=== PATIENT | female | born 1955 | race Caucasian/White ===

== ENCOUNTER → 2020-09-06 | Outpatient (CLI) | payer MEDICARE, OTHER ==
[~2020-09-06] MED LIST: AZITHROMYCIN250 MG PO; BENTYL 20MG TAB20 MG PO; CALTRATE 600 +1 EAC1 PO; COLACE 100MG C100 MG PO; CYMBALTA 30 MG30 MG PO; DOXYCYCLINE HY100 MG PO; ENDOCET 5-3251 EACH PO; FENOFIBRATE160 MG PO; FLAGYL500 MG PO; HYDROCODON-ACE1 EAC4 PO; LIPITOR TAB 2020 MG PO; LISINOPRIL10 MG PO; MACROBID 100 M100 MG PO; METFORMIN HCL1000 MG PO; NOVOLOG FL100 UNIT/1 SQ; OMEPRAZOLE40 MG PO; PREDNISONE 20 M20 MG PO; PREDNISONE 50 M50 MG PO; PROMETHAZINE HC25 M1 PO; PROVENTIL HFA6.7 GM INH; TOUJEO SQ; VALIUM2 MG PO; VENTOLIN HFA 66.7 GM INH; VITAMIN D-32000 UNIT PO; Voltaren Gel 1 % TOP; ZOFRAN ODT 4 MG4 MG PO; ZYRTEC10 M3 PO
[2020-09-06 12:30] LABS: HEMOGLOBIN 12.9 gm/dl (12.3-15.3); RED BLOOD COUNT 4.82 M/UL (4.00-5.10); WHITE BLOOD COUNT 8.2 K/UL (4.5-11.0)
[2020-09-06 12:50] LABS: BUN/CREATININE RATIO 13 (0-10)
[2020-09-07 10:14] LABS: CREATININE, URINE 83.2 mg/dL (Not Estab.)
== END ==
LOC: LAB 11:35
PROVIDERS: Internal Medicine
DX: Z51.81 Encounter for therapeutic drug level monitoring (principal); E11.9 Type 2 diabetes mellitus without complications; K21.9 Gastro-esophageal reflux disease without esophagitis; I10 Essential (primary) hypertension; D51.8 Other vitamin B12 deficiency anemias; E55.9 Vitamin D deficiency, unspecified; Z79.899 Other long term (current) drug therapy
CPT/HCPCS: 36415; 80053; 80061; 82043; 82570; 82607; 82746; 83036; 84439; 84443; 85025; 86900; 86901

== ENCOUNTER 2020-12-25 15:38 | Emergency (ER) | payer MEDICARE, OTHER ==
[~2020-12-25 15:38] MED LIST changes: -CALTRATE 600 +1 EAC1 PO; -CYMBALTA 30 MG30 MG PO; -LISINOPRIL10 MG PO; -NOVOLOG FL100 UNIT/1 SQ; -OMEPRAZOLE40 MG PO; -PREDNISONE 20 M20 MG PO; -TOUJEO SQ; -VITAMIN D-32000 UNIT PO
[2020-12-25 16:22] LABS: HEMOGLOBIN 13.2 gm/dl (12.3-15.3); RED BLOOD COUNT 4.86 M/UL (4.00-5.10); WHITE BLOOD COUNT 10.9 K/UL (4.5-11.0)
[2020-12-25 16:56] LABS: BUN/CREATININE RATIO 17 (0-10)
[2020-12-25] MEDS ORDERED: PREDNISONE 20 M20 MG PO (18:25)
== END 2020-12-25 18:42 | disposition home or self-care (01) ==
LOC: ER1 15:38
PROVIDERS: Emergency Medicine
DX: J20.9 Acute bronchitis, unspecified (principal); J45.909 Unspecified asthma, uncomplicated; I10 Essential (primary) hypertension; E11.9 Type 2 diabetes mellitus without complications; Z88.1 Allergy status to other antibiotic agents; Z88.0 Allergy status to penicillin; Z87.891 Personal history of nicotine dependence; Z20.822 Contact with and (suspected) exposure to COVID-19
CPT/HCPCS: 71045; 80053; 82550; 82553; 83874; 83880; 84484; 85025; 85379; 93005; 99285; Q9967; U0002

== ENCOUNTER 2021-02-06 17:32 | Inpatient (IN) | payer MEDICARE, OTHER ==
[~2021-02-06] VITALS: Ht 157.5 cm; Wt 113.4 kg
[~2021-02-06 17:32] MED LIST changes: +PREDNISONE 20 M20 MG PO
[2021-02-06 19:53] LABS: HEMOGLOBIN 12.7 gm/dl (12.3-15.3); RED BLOOD COUNT 4.87 M/UL (4.00-5.10)
[2021-02-06 20:29] LABS: BUN/CREATININE RATIO 11 (0-10)
[2021-02-07 04:31] LABS: HEMOGLOBIN 12.9 gm/dl (12.3-15.3); RED BLOOD COUNT 4.8 M/UL (4.00-5.10)
[2021-02-07 04:32] LABS: WHITE BLOOD COUNT 5.8 K/UL (4.5-11.0)
[2021-02-07 04:54] LABS: BUN/CREATININE RATIO 14 (0-10)
[2021-02-07] MEDS ORDERED: ZOFRAN4 MG PO (12:00)
[2021-02-07] MEDS ORDERED: METOPROLOL TART25 MG PO (12:01)
[2021-02-07] MEDS ORDERED: FOLIC ACID1 MG PO (12:02)
[2021-02-07] MEDS ORDERED: METFORMIN HCL500 M2 PO (12:02)
[2021-02-07] MEDS ORDERED: FLONASE ALLER15.8 ML (12:03)
[2021-02-07] MEDS ORDERED: SINGULAIR10 MG PO (12:03)
[2021-02-07] MEDS ORDERED: PROAIR DIGIHAL90 MCG INH (12:04)
[2021-02-07] MEDS ORDERED: TYLENOL EXTRA500 MG PO (12:07)
[2021-02-07] MEDS ORDERED: VITAMIN E90 M1 PO (12:08)
[2021-02-07] MEDS ORDERED: CALCIUM CARBON600 M1 PO (16:23)
[2021-02-07] MEDS ORDERED: VITAMIN D350 MC3 PO (16:23)
[2021-02-07] MEDS ORDERED: DEXILANT60 MG PO (16:24)
[2021-02-07] MEDS ORDERED: LISINOPRIL40 MG PO (16:24)
[2021-02-07] MEDS ORDERED: TOUJEO MAX300 UNIT/1 SQ (16:27)
[2021-02-07] MEDS ORDERED: NOVOLOG FL100 UNIT/1 SQ (16:28)
[2021-02-07] MEDS ORDERED: CYMBALTA60 MG PO (16:30)
[2021-02-08 03:25] LABS: HEMOGLOBIN 11.8 gm/dl (12.3-15.3); RED BLOOD COUNT 4.36 M/UL (4.00-5.10)
[2021-02-08 03:37] LABS: WHITE BLOOD COUNT 8.2 K/UL (4.5-11.0)
[2021-02-08 04:05] LABS: BUN/CREATININE RATIO 14 (0-10)
[2021-02-11 04:24] LABS: HEMOGLOBIN 11.8 gm/dl (12.3-15.3); RED BLOOD COUNT 4.45 M/UL (4.00-5.10)
[2021-02-11 05:20] LABS: BUN/CREATININE RATIO 21 (0-10)
[2021-02-11] MEDS ORDERED: ELIQUIS2.5 MG PO (17:44)
[2021-02-12 05:03] LABS: HEMOGLOBIN 12.7 gm/dl (12.3-15.3); RED BLOOD COUNT 4.71 M/UL (4.00-5.10)
[2021-02-12 05:04] LABS: WHITE BLOOD COUNT 11.2 K/UL (4.5-11.0)
[2021-02-12 05:31] LABS: BUN/CREATININE RATIO 18 (0-10)
--- NOTE | 2021-02-12 08:47 | NUR ---
RN REMOVED PATIENT'S NASAL CANULA TO ASSESS ROOM AIR OXYGENATION. OXYGEN 88% ON ROOM AIR. RN REAPPLIED OXYGEN PER ORDER AND OXYGENATION INCREASED TO 90%. NO S/SX OF PAIN OR DISTRESS NOTED.
[2021-02-13 02:45] LABS: HEMOGLOBIN 13.5 gm/dl (12.3-15.3); RED BLOOD COUNT 5.05 M/UL (4.00-5.10); WHITE BLOOD COUNT 13.6 K/UL (4.5-11.0)
[2021-02-13 03:09] LABS: BUN/CREATININE RATIO 20 (0-10)
[2021-02-14 03:44] LABS: HEMOGLOBIN 12.5 gm/dl (12.3-15.3); RED BLOOD COUNT 4.66 M/UL (4.00-5.10); WHITE BLOOD COUNT 12.1 K/UL (4.5-11.0)
[2021-02-14 04:07] LABS: BUN/CREATININE RATIO 17 (0-10)
[2021-02-14] MEDS ORDERED: DECADRON6 MG PO (11:24)
[2021-02-14] MEDS ORDERED: IPRAT-ALBUT 0.5-3 ML NEB (11:24)
[2021-02-14] MEDS ORDERED: ELIQUIS2.5 MG PO (11:24)
== END 2021-02-14 14:10 | disposition home or self-care (01) | DRG 177 ==
LOC: ER1 17:32 → CDU 20:45 → MED SURG 4 20:45
PROVIDERS: Internal Medicine; Physician Assistant; ADMIT Internal Medicine
PROC: XW033E5 Introduction of Remdesivir Anti-infective into Peripheral Vein, Percutaneous Approach, New Technology Group 5 (ICD-10-PCS; 2021-02-06)
PROC: 3E0333Z Introduction of Anti-inflammatory into Peripheral Vein, Percutaneous Approach (ICD-10-PCS; 2021-02-06)
PROC: XW13325 Transfusion of Convalescent Plasma (Nonautologous) into Peripheral Vein, Percutaneous Approach, New Technology Group 5 (ICD-10-PCS; principal; 2021-02-07)
DX: U07.1 COVID-19 (principal); J12.82 Pneumonia due to coronavirus disease 2019; J96.01 Acute respiratory failure with hypoxia; E11.43 Type 2 diabetes mellitus with diabetic autonomic (poly)neuropathy; K31.84 Gastroparesis; I10 Essential (primary) hypertension; J45.909 Unspecified asthma, uncomplicated; E55.9 Vitamin D deficiency, unspecified; E78.5 Hyperlipidemia, unspecified; Z96.669 Presence of unspecified artificial ankle joint; Z96.89 Presence of other specified functional implants; Z96.659 Presence of unspecified artificial knee joint; Z98.890 Other specified postprocedural states; Z82.49 Family history of ischemic heart disease and other diseases of the circulatory system; Z79.4 Long term (current) use of insulin; Z88.0 Allergy status to penicillin; Z88.1 Allergy status to other antibiotic agents; Z88.8 Allergy status to other drugs, medicaments and biological substances; Z90.49 Acquired absence of other specified parts of digestive tract
CPT/HCPCS: 36415; 36600; 71045; 71250; 73502; 73630; 80048; 80053; 82550; 82553; 82803; 82962; 83735; 83874; 83880; 84484; 85025; 85027; 86140; 86900; 86901; 86927; 87040; 93005; 94640; 94760; 97161; 99285; J1100; J1335; J1650; J2185; J2765; J7030; J7050; U0002

== ENCOUNTER → 2021-02-22 | Outpatient (CLI) | payer MEDICARE, OTHER ==
[~2021-02-22] MED LIST changes: +CALCIUM CARBON600 M1 PO; +CYMBALTA60 MG PO; +DECADRON6 MG PO; +DEXILANT60 MG PO; +ELIQUIS2.5 MG PO; +FLONASE ALLER15.8 ML; +FOLIC ACID1 MG PO; +IPRAT-ALBUT 0.5-3 ML NEB; +LISINOPRIL40 MG PO; +METFORMIN HCL500 M2 PO; +METOPROLOL TART25 MG PO; +NOVOLOG FL100 UNIT/1 SQ; +PROAIR DIGIHAL90 MCG INH; +SINGULAIR10 MG PO; +TOUJEO MAX300 UNIT/1 SQ; +TYLENOL EXTRA500 MG PO; +VITAMIN D350 MC3 PO; +VITAMIN E90 M1 PO; +ZOFRAN4 MG PO
== END ==
LOC: KOH-I 13:02
DX: J18.9 Pneumonia, unspecified organism (principal)
CPT/HCPCS: 71046

== ENCOUNTER → 2021-03-07 | Outpatient (CLI) | payer MEDICARE, OTHER | LOC: KOH-I 15:48 | DX: J18.9 Pneumonia, unspecified organism (principal); R91.8 Other nonspecific abnormal finding of lung field | CPT/HCPCS: 71046 ==

== ENCOUNTER → 2021-03-11 | Outpatient (CLI) | payer OTHER, MEDICARE | LOC: HEART 5 02-21 08:30 | DX: R06.02 Shortness of breath (principal); I25.10 Atherosclerotic heart disease of native coronary artery without angina pectoris | CPT/HCPCS: 78452; 93306; A9502; J2785 ==

== ENCOUNTER → 2021-03-27 | Outpatient (CLI) | payer MEDICARE, OTHER | LOC: CT 07:36 | DX: U07.1 COVID-19 (principal); R91.8 Other nonspecific abnormal finding of lung field | CPT/HCPCS: 71250 ==

== ENCOUNTER → 2021-04-18 | Outpatient (CLI) | payer MEDICARE, OTHER | LOC: EXRD 09:40 | DX: Z13.6 Encounter for screening for cardiovascular disorders (principal) | CPT/HCPCS: 76706 ==

== ENCOUNTER → 2021-08-12 | Outpatient (CLI) | payer MEDICARE, OTHER | LOC: KOH-I 12:28 | DX: R06.02 Shortness of breath (principal); R05.9 Cough, unspecified | CPT/HCPCS: 71046 ==

== ENCOUNTER → 2021-09-23 | Outpatient (CLI) | payer MEDICARE, OTHER | LOC: HEART 5 07:28 | DX: I25.10 Atherosclerotic heart disease of native coronary artery without angina pectoris (principal); R06.02 Shortness of breath | CPT/HCPCS: 78452; A9502; J2785 ==

== ENCOUNTER 2021-11-01 12:15 | Inpatient (IN) | payer MEDICARE, OTHER ==
[~2021-11-01] VITALS: Ht 157.5 cm; Wt 124.3 kg
[~2021-11-01 12:15] MED LIST changes: -PROAIR DIGIHAL90 MCG INH; +PROAIR HFA8.5 GM INH
[2021-11-01 14:02] LABS: HEMOGLOBIN 10.8 gm/dl (12.3-15.3); RED BLOOD COUNT 4.34 M/UL (4.00-5.10); WHITE BLOOD COUNT 8.1 K/UL (4.5-11.0)
[2021-11-01 14:32] LABS: BUN/CREATININE RATIO 10 (0-10)
[2021-11-02 03:47] LABS: HEMOGLOBIN 10.6 gm/dl (12.3-15.3); RED BLOOD COUNT 4.23 M/UL (4.00-5.10); WHITE BLOOD COUNT 9.5 K/UL (4.5-11.0)
[2021-11-02 04:11] LABS: BUN/CREATININE RATIO 13 (0-10)
[2021-11-02] MEDS ORDERED: FENOFIBRATE160 MG PO (14:43)
[2021-11-02] MEDS ORDERED: OMEPRAZOLE40 MG PO (14:43)
[2021-11-02] MEDS ORDERED: FEXOFENADINE H180 MG PO (14:45)
[2021-11-02] MEDS ORDERED: CENTRUM SILVER1 EAC4 PO (14:47)
[2021-11-03 03:31] LABS: HEMOGLOBIN 11.3 gm/dl (12.3-15.3); RED BLOOD COUNT 4.52 M/UL (4.00-5.10); WHITE BLOOD COUNT 9.3 K/UL (4.5-11.0)
[2021-11-03 03:46] LABS: BUN/CREATININE RATIO 24 (0-10)
[2021-11-04 02:18] LABS: BUN/CREATININE RATIO 29 (0-10)
--- NOTE | 2021-11-04 10:36 | NUR ---
PTS O2 ON RA WAS 84%
[2021-11-05 04:13] LABS: HEMOGLOBIN 13.1 gm/dl (12.3-15.3)
[2021-11-05 04:15] LABS: RED BLOOD COUNT 5.16 M/UL (4.00-5.10); WHITE BLOOD COUNT 12.9 K/UL (4.5-11.0)
[2021-11-05 04:28] LABS: BUN/CREATININE RATIO 32 (0-10)
[2021-11-05 16:15] LABS: BUN/CREATININE RATIO 34 (0-10)
[2021-11-06 04:01] LABS: BUN/CREATININE RATIO 33 (0-10)
[2021-11-06 10:16] LABS: BUN/CREATININE RATIO 30 (0-10)
[2021-11-06 15:48] LABS: BUN/CREATININE RATIO 29 (0-10)
--- NOTE | 2021-11-06 17:03 | NUR ---
PT OXYGEN 82% ON ROOM AIR
[2021-11-07 06:43] LABS: BUN/CREATININE RATIO 32 (0-10)
[2021-11-07 11:44] LABS: BUN/CREATININE RATIO 32 (0-10)
[2021-11-07 16:07] LABS: BUN/CREATININE RATIO 29 (0-10)
[2021-11-08 05:13] LABS: BUN/CREATININE RATIO 24 (0-10)
[2021-11-08 10:54] LABS: BUN/CREATININE RATIO 19 (0-10)
[2021-11-08] MEDS ORDERED: SYMBICORT 80-41 INHA INH (11:17)
[2021-11-08] MEDS ORDERED: LISINOPRIL5 MG PO (11:17)
== END 2021-11-08 16:30 | disposition home health service (06) | DRG 291 ==
LOC: ER1 12:15 → CDU 16:12 → MED SURG 4 16:12
PROVIDERS: Emergency Medicine; Internal Medicine Infectious Disease; Internal Medicine Pulmonary Disease; Nurse Practitioner Family; Physician Assistant; ADMIT Internal Medicine
PROC: 5A09357 Assistance with Respiratory Ventilation, Less than 24 Consecutive Hours, Continuous Positive Airway Pressure (ICD-10-PCS; principal; 2021-11-03)
PROC: 5A09357 Assistance with Respiratory Ventilation, Less than 24 Consecutive Hours, Continuous Positive Airway Pressure (ICD-10-PCS; 2021-11-04)
PROC: 5A09357 Assistance with Respiratory Ventilation, Less than 24 Consecutive Hours, Continuous Positive Airway Pressure (ICD-10-PCS; 2021-11-05)
DX: I11.0 Hypertensive heart disease with heart failure (principal); J96.21 Acute and chronic respiratory failure with hypoxia; J96.22 Acute and chronic respiratory failure with hypercapnia; I50.33 Acute on chronic diastolic (congestive) heart failure; E66.2 Morbid (severe) obesity with alveolar hypoventilation; E87.1 Hypo-osmolality and hyponatremia; E87.3 Alkalosis; E87.2 Acidosis; J45.901 Unspecified asthma with (acute) exacerbation; Z68.43 Body mass index [BMI] 50.0-59.9, adult; E78.5 Hyperlipidemia, unspecified; E11.43 Type 2 diabetes mellitus with diabetic autonomic (poly)neuropathy; T50.2X5A Adverse effect of carbonic-anhydrase inhibitors, benzothiadiazides and other diuretics, initial encounter; Z20.822 Contact with and (suspected) exposure to COVID-19; E87.6 Hypokalemia; J45.909 Unspecified asthma, uncomplicated; I25.110 Atherosclerotic heart disease of native coronary artery with unstable angina pectoris; E11.649 Type 2 diabetes mellitus with hypoglycemia without coma; Z96.659 Presence of unspecified artificial knee joint; K75.81 Nonalcoholic steatohepatitis (NASH); E78.00 Pure hypercholesterolemia, unspecified; R53.81 Other malaise; T38.0X5A Adverse effect of glucocorticoids and synthetic analogues, initial encounter; R94.5 Abnormal results of liver function studies; E55.9 Vitamin D deficiency, unspecified; E78.1 Pure hyperglyceridemia; K31.84 Gastroparesis; Z98.890 Other specified postprocedural states; Z90.49 Acquired absence of other specified parts of digestive tract; Z88.0 Allergy status to penicillin; Z80.8 Family history of malignant neoplasm of other organs or systems; Z88.8 Allergy status to other drugs, medicaments and biological substances; Z87.891 Personal history of nicotine dependence; Z80.1 Family history of malignant neoplasm of trachea, bronchus and lung; Z79.4 Long term (current) use of insulin; Z79.899 Other long term (current) drug therapy; Z99.81 Dependence on supplemental oxygen
CPT/HCPCS: 0240U; 36415; 36600; 71045; 80048; 80053; 81001; 82436; 82550; 82553; 82803; 82962; 83036; 83605; 83735; 83880; 83930; 83935; 84133; 84300; 84439; 84443; 84484; 85025; 85027; 87040; 93005; 94640; 94660; 94664; 94760; 96374; 96375; 99285; J1940; J2185; J2405; J2920; Q9967

== ENCOUNTER → 2022-01-08 | Outpatient (CLI) | payer MEDICARE, OTHER ==
[~2022-01-08] MED LIST changes: +CENTRUM SILVER1 EAC4 PO; +FEXOFENADINE H180 MG PO; +LISINOPRIL5 MG PO; +OMEPRAZOLE40 MG PO; +SYMBICORT 80-41 INHA INH
[2022-01-08 15:56] LABS: BORDETELLA PARAPERTUSSIS Not Detected (Not Detectd); BORDETELLA PERTUSSIS Not Detected (Not Detectd); CHLAMYDIA PNEUMONIAE Not Detected (Not Detectd); CORONAVIRUS HKU1 Not Detected (Not Detectd); CORONAVIRUS NL63 Not Detected (Not Detectd); CORONAVIRUS OC43 Not Detected (Not Detectd); CORONOAVIRUS 229E Not Detected (Not Detectd); HUMAN METAPNEUMOVIRUS Not Detected (Not Detectd); INFLUENZA A Not Detected (Not Detectd); INFLUENZA B Not Detected (Not Detectd); MYCOPLASMA PNEUMONIAE Not Detected (Not Detectd); PARAINFLUENZA VIRUS 1 Not Detected (Not Detectd); PARAINFLUENZA VIRUS 2 Not Detected (Not Detectd); PARAINFLUENZA VIRUS 3 Not Detected (Not Detectd); PARAINFLUENZA VIRUS 4 Not Detected (Not Detectd); RESPIRATORY SYNCYTIAL VIRUS Not Detected (Not Detectd)
[2022-01-08 15:57] LABS: HUMAN RHINOVIRUS/ENTEROVIRUS DETECTED (Not Detectd); SARS-CoV-2 NOT DETECTED (Not Detectd)
== END ==
LOC: LAB 14:33
PROVIDERS: Physician Assistant
DX: J06.9 Acute upper respiratory infection, unspecified (principal); R05.9 Cough, unspecified; Z20.822 Contact with and (suspected) exposure to COVID-19
CPT/HCPCS: 71046; 87633